=== PATIENT | female | born 1990 | race Hispanic/Latino ===

== ENCOUNTER 2019-06-10 09:30 | Emergency (ER) | payer SELFPAY ==
[2019-06-10 10:13] LABS: #Eosinphils 0.1 thou/uL (0.0-0.7); #Lymphocytes 1.6 thou/uL (1.20-3.40); #Monocytes 0.4 thou/uL (0.11-0.59); %Basophils 0.7 % (0.0-1.0); %Eosinophils 1.7 % (0.0-10.0); %Lymphocytes 26.4 % (21.0-51.0); %Monocytes 6.6 % (0.0-10.0); %Neutrophils 64.6 % (42.0-75.0); Hemoglobin 14.1 g/dL (12.0-16.0); Mean Corpuscular HGB CONC 33.5 g/dL (32.0-36.0); Mean Corpuscular Hemoglobin 29.1 pg (27.0-31.0); Mean Corpuscular Volume 86.7 fL (78.0-98.0); Mean Platelet Volume 8.4 fL (7.4-10.4); Platelet Count 263 thou/uL (130-400); RBC Distribution Width 12.2 % (11.5-14.5); Red Blood Cell (RBC) Count 4.86 mill/uL (4.20-5.40); White Blood Cell (WBC) Count 6.2 thou/uL (4.8-10.8)
[2019-06-10] MEDS ORDERED: Ondansetron PF 4 MG/2 ML Vial ONE (10:28)
[2019-06-10 10:39] LABS: Bacteria/HPF None Seen HPF (None Seen); Bilirubin Negative (Negative); Blood, Urine 2+ (Negative); Clarity Clear (Clear); Glucose, Urine (Dipstick) Normal (Negative); Leukocyte Negative Leu/uL (Negative); Nitrite Negative (Negative); Protein, Urine (Dipstick) Negative (Neg-Trace); RBC/HPF 0-3 HPF (0-3); Squamous Epithelial 0-3 HPF (0-3); Urobilinogen Normal mg/dL (Less than 2); WBC/HPF 0-3 HPF (0-3)
--- NOTE | 2019-06-10 10:57 | ULT ---
PELVIC ULTRASOUND INCLUDING TRANSABDOMINAL AND TRANSVAGINAL AND VASCULAR DUPLEX WITH COLOR AND SPECTR AL DOPPLER IMAGING: Date: 06/10/2019 HISTORY: Vaginal bleeding, concern for ectopic. FINDINGS: Uterus measures 8.0 x 4.0 x 4.4 cm. Endometrium measures 0.8 cm. Right ovary measures 2.1 x 3.1 x 4.6 cm. Left ovary measures 2.6 x 2.6 x 3.2 cm. Vascular flow is documented to both ovaries. No evidence for ovarian torsion. No significant free cul -de-sac fluid. No evidence for an intrauterine gestational sac. No ultrasound evidence for an extrauterine gestation al sac. IMPRESSION: 1. No evidence for intra or extrauterine . If that remains a concern, or if ectopic remains a concern, follow-up serum HCGs and follow-up ultrasound should be considered. 2. Borderline to minimally enlarged ovaries with multiple ovarian follicle cysts, a finding that can be seen in association with polycystic ovarian disease. Correlate clinically. POS: [facility]
[2019-06-10] MEDS ORDERED: Ketorolac Tromethamine 30 MG/ML VIAL ONE (11:05)
[2019-06-10 11:06] LABS: BHCG - Serum Negative (NEGATIVE); Pregs Control Background? CLEAR/WHITE (CLR/WHITE); Pregs Control Bar Appear? YES (CONTROL BAR)
[2019-06-10 11:23] LABS: ALT (SGPT) 15 U/L (8-55); AST (SGOT) 16 U/L (5-34); Alkaline Phosphatase 108 U/L (40-110); Anion Gap 9 mmol/L (10-20); BUN (Urea Nitrogen) 11 mg/dL (7.0-18.7); Bilirubin, Total 0.2 mg/dL (0.2-1.2); Calc. Creatinine Clearance 0 mL/min (70-130); Carbon Dioxide 25 mmol/L (22-29); Chloride 105 mmol/L (98-107); Estimated GFR-MDRD Greater than 90; Globulin 3.4 g/dL (2.4-3.5); Glucose 93 mg/dL (70-105); Lipase 51 U/L (8-78); Potassium 4.1 mmol/L (3.5-5.1); Protein, Total 7.4 g/dL (6.0-8.3); Sodium 135 mmol/L (136-145)
--- NOTE | 2019-06-10 11:44 | CT ---
Exam: Abdomen CT without contrast Pelvic CT without contrast HISTORY: Right nephrectomy. Pain. COMPARISON: None FINDINGS: Abdomen CT: Lung bases:5 mm solid nodule in the left lung base, incompletely evaluated Heart size: Normal heart size Aorta: Unremarkable aorta Solid organs: Evaluation due to lack of IV contrast. Grossly no solid organ abnormality Lymph nodes: No gastrohepatic, retrocrural or periportal lymphadenopathy Gallbladder: Unremarkable Mesentery: No mass, free air or free fluid. Enlarged mesenteric lymph nodes may be due to mesenteric lymphadenitis. Corn Shredder lymph node measures 0.9 x 0.7 cm. Kidneys: Absent right kidney. With regards the left kidney, no evidence of obstructive uropathy. Alimentary canal: Limited evaluation due to lack of oral contrast administration. No evidence of kathy l obstruction. Normal caliber appendix. Scattered fecal material in a nondistended, nondilated colon. CT PELVIS: No mass, adenopathy, free air or free fluid. Uterus and adnexal structures are grossly unremarkable Urinary bladder: Unremarkable. Osseous structures: No lytic or blastic lesions IMPRESSION: 1. Surgically absent right kidney 2. No evidence of left-sided obstructive uropathy 3. Mildly enlarged mesenteric lymph nodes. Correlate for mesenteric lymphadenitis. 4. Incompletely evaluated solid nodule in the left lung base. Code lung nodule
[2019-06-11 21:37] LABS: Chlamydia by PCR Not Detected (NotDetected); GC by PCR Not Detected (NotDetected)
== END 2019-06-10 12:25 | disposition home or self-care (01) ==
LOC: ERS 09:30
DX: I88.0 Nonspecific mesenteric lymphadenitis (principal); R91.1 Solitary pulmonary nodule
CPT/HCPCS: 36415; 74176; 76856; 80053; 81003; 81015; 83690; 84702; 84703; 85025; 86900; 86901; 87480; 87491; 87510; 87591; 87660; 96361; 96374; 96375; J1885; J2405

== ENCOUNTER 2019-07-21 19:29 | Emergency (ER) | payer SELFPAY ==
[2019-07-21 19:54] LABS: #Eosinphils 0.2 thou/uL (0.0-0.7); #Lymphocytes 2.6 thou/uL (1.20-3.40); #Monocytes 0.5 thou/uL (0.11-0.59); #Neutrophils 5.3 thou/uL (1.40-6.50); %Basophils 0.3 % (0.0-1.0); %Eosinophils 2.1 % (0.0-10.0); %Lymphocytes 30.2 % (21.0-51.0); %Monocytes 6.1 % (0.0-10.0); %Neutrophils 61.4 % (42.0-75.0); Hemoglobin 13.5 g/dL (12.0-16.0); Mean Corpuscular HGB CONC 34.9 g/dL (32.0-36.0); Mean Corpuscular Volume 85.9 fL (78.0-98.0); Mean Platelet Volume 7.9 fL (7.4-10.4); Platelet Count 256 thou/uL (130-400); RBC Distribution Width 12.3 % (11.5-14.5); White Blood Cell (WBC) Count 8.7 thou/uL (4.8-10.8)
--- NOTE | 2019-07-21 20:02 | RAD ---
EXAM: CHEST ONE VIEW: History: Chest and back pain, shortness of breath. FINDINGS: Heart size is normal. The lungs are clear. No confluent pneumonia, overt edema, or pleural effusion. IMPRESSION: No acute intrathoracic disease. POS: RRE
[2019-07-21 20:16] LABS: ALT (SGPT) 20 U/L (8-55); AST (SGOT) 17 U/L (5-34); Alkaline Phosphatase 129 U/L (40-110); Anion Gap 12 mmol/L (10-20); BUN (Urea Nitrogen) 13 mg/dL (7.0-18.7); Bilirubin, Total 0.2 mg/dL (0.2-1.2); Calc. Creatinine Clearance 0 mL/min (70-130); Calcium 8.9 mg/dL (7.8-10.44); Carbon Dioxide 26 mmol/L (22-29); Chloride 105 mmol/L (98-107); Estimated GFR-MDRD 80; Globulin 3.4 g/dL (2.4-3.5); Glucose 94 mg/dL (70-105); Potassium 3.7 mmol/L (3.5-5.1); Protein, Total 7.4 g/dL (6.0-8.3); Sodium 139 mmol/L (136-145)
[2019-07-21] MEDS ORDERED: Aspirin Chewable 81 MG TAB ONE (20:31)
[2019-07-21] MEDS ORDERED: Acetaminophen 500 MG TAB ONE (23:09)
== END 2019-07-21 23:27 | disposition home or self-care (01) ==
LOC: ERS 19:29
DX: M94.0 Chondrocostal junction syndrome [Tietze] (principal)
CPT/HCPCS: 36415; 71045; 80053; 84484; 85025; 93005

== ENCOUNTER 2019-07-29 18:11 | Inpatient (IN) | payer SELFPAY ==
[~2019-07-29 18:11] MED LIST: Iopamidol-370 76% 500 ML 1 ML ONE
[2019-07-29 18:37] LABS: #Eosinphils 0.1 thou/uL (0.0-0.7); #Lymphocytes 2.8 thou/uL (1.20-3.40); #Monocytes 0.4 thou/uL (0.11-0.59); #Neutrophils 4.5 thou/uL (1.40-6.50); %Basophils 0.5 % (0.0-1.0); %Eosinophils 1.6 % (0.0-10.0); %Lymphocytes 35.4 % (21.0-51.0); %Monocytes 5.2 % (0.0-10.0); %Neutrophils 57.3 % (42.0-75.0); Hemoglobin 13.4 g/dL (12.0-16.0); Mean Corpuscular HGB CONC 34.4 g/dL (32.0-36.0); Mean Corpuscular Hemoglobin 29.7 pg (27.0-31.0); Mean Corpuscular Volume 86.2 fL (78.0-98.0); Platelet Count 311 thou/uL (130-400); RBC Distribution Width 12.4 % (11.5-14.5); Red Blood Cell (RBC) Count 4.52 mill/uL (4.20-5.40); White Blood Cell (WBC) Count 7.9 thou/uL (4.8-10.8)
[2019-07-29 18:50] LABS: ALT (SGPT) 16 U/L (8-55); AST (SGOT) 17 U/L (5-34); Albumin 4.2 g/dL (3.5-5.0); Alkaline Phosphatase 135 U/L (40-110); Anion Gap 12 mmol/L (10-20); BUN (Urea Nitrogen) 13 mg/dL (7.0-18.7); Bilirubin, Total 0.2 mg/dL (0.2-1.2); Calc. Creatinine Clearance 0 mL/min (70-130); Calcium 9.1 mg/dL (7.8-10.44); Carbon Dioxide 26 mmol/L (22-29); Chloride 104 mmol/L (98-107); Estimated GFR-MDRD 71; Globulin 3.4 g/dL (2.4-3.5); Glucose 89 mg/dL (70-105); Potassium 3.8 mmol/L (3.5-5.1); Protein, Total 7.6 g/dL (6.0-8.3); Sodium 138 mmol/L (136-145)
[2019-07-29] MEDS ORDERED: Ondansetron PF 4 MG/2 ML Vial ONE ×2 (19:42→20:28)
[2019-07-29 19:53] LABS: Bacteria/HPF None Seen HPF (None Seen); Squamous Epithelial 0-3 HPF (0-3); WBC/HPF 0-3 HPF (0-3)
[2019-07-29 19:55] LABS: Bilirubin Negative (Negative); Blood, Urine Trace (Negative); Glucose, Urine (Dipstick) Negative (Negative); Leukocyte Negative (Negative); Nitrite Negative (Negative); Protein, Urine (Dipstick) Negative (Neg-Trace); Urobilinogen 0.2 mg/dL (Less than 2)
[2019-07-29 20:11] LABS: Clarity Clear (Clear)
[2019-07-29] MEDS ORDERED: Morphine 4 MG/ML VIAL ONE (20:18)
[2019-07-29 20:23] LABS: BHCG - Serum Negative (NEGATIVE); Pregs Control Background? CLEAR/WHITE (CLR/WHITE); Pregs Control Bar Appear? YES (CONTROL BAR)
[2019-07-29 20:24] LABS: Pregnancy Test - Urine (BHCG) Negative (Negative); Pregu Control Background? CLEAR/WHITE (CLR/WHITE); Pregu Control Bar Appear? YES (CONTROL BAR)
[2019-07-29] MEDS ORDERED: Promethazine HCl 25 MG/ML VIAL ONE (21:23)
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
[2019-07-29] MEDS ORDERED: Piperacillin/Tazobactam 4.5 GM VIAL ONE (23:57)
[2019-07-30] MEDS ORDERED: Benzocaine 20% Spray 60 ML CAN ONE (00:46)
[2019-07-30 01:26] VITALS: BMI 32.9
[2019-07-30] MEDS ORDERED: Morphine 2 MG/ML SYRINGE SLOW IVP PRN (06:48)
[2019-07-30] MEDS ORDERED: Dextrose 5% in Water 1,000 ML IV PRN (06:48)
[2019-07-30] MEDS ORDERED: Dextrose 50% Abboject 50 ML SYRINGE SLOW IVP PRN (06:48)
[2019-07-30] MEDS ORDERED: Morphine 4 MG/ML VIAL SLOW IVP PRN (06:48)
[2019-07-30] MEDS ORDERED: Promethazine HCl 25 MG/ML VIAL IM PRN (06:48)
[2019-07-30] MEDS ORDERED: hydrALAZINE 20 MG/ML VIAL SLOW IVP PRN (06:48)
[2019-07-30] MEDS ORDERED: Ondansetron PF 4 MG/2 ML Vial IVP PRN (06:48)
[2019-07-30] MEDS: D5 1/2 NS w/20 mEq KCL 1,000 ML IV SCH ×2 (10:20→16:11)
[2019-07-30] MEDS: Famotidine/PF 20 mg/2ml Vial SLOW IVP SCH ×2 (10:26→20:30)
[2019-07-30] MEDS: Famotidine 20 MG TAB PO SCH ×2 (10:26→20:31)
--- NOTE | 2019-07-30 12:24 | RAD ---
Small bowel series: DATE: 07/30/2019 HISTORY: 28-year-old female with abdominal pain and transient small bowel intussusception. TECHNIQUE: Gastrografin injected through esophagogastric tube. FINDINGS: Contrast travels through small bowel loops with normal fold pattern. A single borderline dilated jeju nal loop in left midabdomen visualized only in the one-hour image. Contrast reaches the rectum by 1 hour and 30 minutes. IMPRESSION: No high-grade small bowel obstruction.
[2019-07-30] MEDS: Piperacillin/Tazobactam 4.5 GM in Sodium Chloride 0.9% 100 ML IVPB SCH ×2 (12:55→18:30)
[2019-07-30] MEDS ORDERED: MD-Gastroview 120 ML BOT ONE (14:24)
[2019-07-30] MEDS ORDERED: Enoxaparin Sodium 40 MG/0.4 ML SYRINGE SC SCH (21:00)
[2019-07-31 10:23] VITALS: BP 92/59; TEMP 98.7
[2019-07-31] MEDS: Famotidine 20 MG TAB PO SCH (10:25)
[2019-07-31] MEDS: Famotidine/PF 20 mg/2ml Vial SLOW IVP SCH (10:25)
--- NOTE | 2019-07-31 10:26 | DIS ---
DATE OF ADMISSION: 07/30/2019 DATE OF DISCHARGE: 07/31/2019 ADMITTING DIAGNOSIS: Small intestine obstruction, question of intussusception. DISCHARGE DIAGNOSIS: Small intestine obstruction, question of intussusception. PROCEDURES: None. CONDITION ON DISCHARGE: Improved. STAFF: Donato Monique MD HOSPITAL COURSE: The patient's initial CT scan revealed possible intussusception. She had NG tube placed and her symptoms resolved. Her small bowel follow-through showed passage through the colon at 1 hour. She had multiple bowel movements. She was able to tolerate a liquid diet without difficulty. There was one area of the small bowel follow-through and colon, where there was a more dilated pocket of intestine, but this is not completely obstructing. On the day of discharge, she is doing well. She is tolerating the clear liquids. She is ambulatory, having some looser stools because of the small bowel follow-through. She is discharged home. She will follow up with me in the office in 2 weeks. If this becomes a recurring issue with this obstruction, she may need operative treatment. I think the likelihood of that is low. Job ID: [id number]
== END 2019-07-31 12:00 | disposition home or self-care (01) | DRG 390 ==
LOC: ERS 18:11 → OBSVTOIN 07-30 00:10 → ERHOLD 07-30 00:10 → SURG A 07-30 09:14
PROVIDERS: ADMIT Surgery; ATTEND Surgery
DX: K56.1 Intussusception (principal)
CPT/HCPCS: 36415; 74177; 74250; 80053; 81003; 81015; 81025; 83690; 83735; 84703; 85025; 86850; 86900; 86901; 93005; 96361; 96365; 96375; 96376; J1650; J2270; J2405; J2543; J2550; J3490; Q9963; Q9967; S0028

== ENCOUNTER 2019-08-07 23:20 | Emergency (ER) | payer SELFPAY ==
[2019-08-08 00:07] LABS: #Eosinphils 0.1 thou/uL (0.0-0.7); #Lymphocytes 2.3 thou/uL (1.20-3.40); #Monocytes 0.5 thou/uL (0.11-0.59); #Neutrophils 6.2 thou/uL (1.40-6.50); %Basophils 0.4 % (0.0-1.0); %Eosinophils 1.1 % (0.0-10.0); %Lymphocytes 25.1 % (21.0-51.0); %Monocytes 5.8 % (0.0-10.0); %Neutrophils 67.6 % (42.0-75.0); Hemoglobin 13.6 g/dL (12.0-16.0); Mean Corpuscular HGB CONC 34.8 g/dL (32.0-36.0); Mean Corpuscular Hemoglobin 29.8 pg (27.0-31.0); Mean Corpuscular Volume 85.6 fL (78.0-98.0); Mean Platelet Volume 7.9 fL (7.4-10.4); Platelet Count 304 thou/uL (130-400); RBC Distribution Width 12.2 % (11.5-14.5); Red Blood Cell (RBC) Count 4.56 mill/uL (4.20-5.40); White Blood Cell (WBC) Count 9.2 thou/uL (4.8-10.8)
[2019-08-08 00:29] LABS: ALT (SGPT) 25 U/L (8-55); AST (SGOT) 28 U/L (5-34); Albumin 4.2 g/dL (3.5-5.0); Alkaline Phosphatase 143 U/L (40-110); Anion Gap 13 mmol/L (10-20); BUN (Urea Nitrogen) 15 mg/dL (7.0-18.7); Bilirubin, Total 0.3 mg/dL (0.2-1.2); Calc. Creatinine Clearance 0 mL/min (70-130); Calcium 9.4 mg/dL (7.8-10.44); Carbon Dioxide 26 mmol/L (22-29); Chloride 105 mmol/L (98-107); Estimated GFR-MDRD 76; Globulin 3.6 g/dL (2.4-3.5); Glucose 101 mg/dL (70-105); Potassium 4.3 mmol/L (3.5-5.1); Protein, Total 7.8 g/dL (6.0-8.3); Sodium 140 mmol/L (136-145)
[2019-08-08 00:33] LABS: Lipase 47 U/L (8-78)
[2019-08-08 00:41] LABS: BHCG - Serum Negative (NEGATIVE); Pregs Control Background? CLEAR/WHITE (CLR/WHITE); Pregs Control Bar Appear? YES (CONTROL BAR)
[2019-08-08] MEDS ORDERED: Ketorolac Tromethamine 30 MG/ML VIAL ONE (01:12)
[2019-08-08] MEDS ORDERED: Metoclopramide HCl 10 MG/2 ML VIAL ONE (01:12)
[2019-08-08] MEDS ORDERED: diphenhydrAMINE 50 MG/ML VIAL ONE (01:12)
== END 2019-08-08 02:52 | disposition home or self-care (01) ==
LOC: ERS 23:20
DX: R51 Headache (principal); R11.2 Nausea with vomiting, unspecified
CPT/HCPCS: 36415; 80053; 83690; 84703; 85025; 96365; 96375; J1200; J1885; J2765

== ENCOUNTER 2020-03-10 20:10 | Emergency (ER) | payer SELFPAY ==
[2020-03-10 22:10] LABS: #Lymphocytes 1.2 thou/uL (1.20-3.40); #Monocytes 0.6 thou/uL (0.11-0.59); #Neutrophils 10.9 thou/uL (1.40-6.50); %Basophils 0.2 % (0.0-1.0); %Eosinophils 0.2 % (0.0-10.0); %Lymphocytes 9.3 % (21.0-51.0); %Monocytes 4.8 % (0.0-10.0); %Neutrophils 85.5 % (42.0-75.0); Hemoglobin 14.1 g/dL (12.0-16.0); Mean Corpuscular HGB CONC 32.8 g/dL (32.0-36.0); Mean Corpuscular Hemoglobin 27.9 pg (27.0-31.0); Mean Corpuscular Volume 85.2 fL (78.0-98.0); Mean Platelet Volume 8.4 fL (7.4-10.4); Platelet Count 270 thou/uL (130-400); RBC Distribution Width 12.8 % (11.5-14.5); Red Blood Cell (RBC) Count 5.05 mill/uL (4.20-5.40); White Blood Cell (WBC) Count 12.7 thou/uL (4.8-10.8)
[2020-03-10 22:19] LABS: BHCG - Serum Negative (NEGATIVE); Pregs Control Background? CLEAR/WHITE (CLR/WHITE); Pregs Control Bar Appear? YES (CONTROL BAR)
[2020-03-10] MEDS ORDERED: Morphine 4 MG/ML VIAL ONE (22:19)
[2020-03-10] MEDS ORDERED: Ondansetron PF 4 MG/2 ML Vial ONE (22:19)
[2020-03-10 22:33] LABS: ALT (SGPT) 21 U/L (8-55); AST (SGOT) 23 U/L (5-34); Albumin 4.3 g/dL (3.5-5.0); Alkaline Phosphatase 124 U/L (40-110); Anion Gap 12 mmol/L (10-20); BUN (Urea Nitrogen) 12 mg/dL (7.0-18.7); Bilirubin, Total 0.3 mg/dL (0.2-1.2); Calc. Creatinine Clearance 0 mL/min (70-130); Carbon Dioxide 26 mmol/L (22-29); Chloride 105 mmol/L (98-107); Estimated GFR-MDRD 79; Globulin 3.5 g/dL (2.4-3.5); Glucose 105 mg/dL (70-105); Potassium 3.8 mmol/L (3.5-5.1); Protein, Total 7.8 g/dL (6.0-8.3); Sodium 139 mmol/L (136-145)
[2020-03-10 22:39] LABS: Bilirubin Negative (Negative); Blood, Urine 2+ (Negative); Clarity Clear (Clear); Glucose, Urine (Dipstick) Normal (Negative); Ketone, Urine Negative (Negative); Leukocyte Negative Leu/uL (Negative); Nitrite Negative (Negative); Protein, Urine (Dipstick) 30 mg/dL (Neg-Trace); RBC/HPF 0-3 HPF (0-3); Specific Gravity, Urine 1.023 (1.002-1.036); Urobilinogen Normal mg/dL (Less than 2); WBC/HPF 0-3 HPF (0-3)
[2020-03-10 22:40] LABS: Bacteria/HPF 1+ HPF (None Seen)
[2020-03-11] MEDS ORDERED: Boostrix 0.5 ML (Tdap) VIAL ONE (00:04)
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
== END 2020-03-11 00:12 | disposition home or self-care (01) ==
LOC: ERS 20:10
DX: S80.01XA Contusion of right knee, initial encounter (principal); S00.01XA Abrasion of scalp, initial encounter; S10.91XA Abrasion of unspecified part of neck, initial encounter; S40.812A Abrasion of left upper arm, initial encounter; S40.811A Abrasion of right upper arm, initial encounter; Y04.1XXA Assault by human bite, initial encounter
CPT/HCPCS: 74177; 80053; 81003; 81015; 84703; 85025; 90471; 90715; 96374; 96375; J2270; J2405; Q9967